=== PATIENT | female | born 1950 | race Caucasian/White ===

== ENCOUNTER 2023-01-16 08:09 | Outpatient (CLI) | payer MEDICARE, OTHER, SELFPAY | END 2023-01-16 08:10 | disposition home or self-care (01) | PROVIDERS: PCP Internal Medicine; Visit Provider Internal Medicine | DX: Z00.00 Encounter for general adult medical examination without abnormal findings (principal); I10 Essential (primary) hypertension; E78.5 Hyperlipidemia, unspecified; M81.0 Age-related osteoporosis without current pathological fracture | CPT/HCPCS: 80048; 80061; 82306 ==

== ENCOUNTER 2023-01-16 08:49 | Outpatient (CLI) | payer MEDICARE, OTHER, SELFPAY ==
--- NOTE | 2023-01-16 08:45 | CRLHL7_ITS ---
For Patients: As a result of the Century Cures Act, medical imaging exams and procedure reports are released immediately into your electronic medical record. You may view this report before your referring provider. If you have questions, please contact your health care provider. BILATERAL SCREENING MAMMOGRAM WITH COMPUTER-AIDED DETECTION TECHNIQUE: CC and MLO views were obtained. These mammographic images have been obtained using full-field digital technique. These mammographic images were interpreted with the benefit of computer-aided detection. COMPARISON FILM: 12/05/21, 12/02/20, 04/07/19. FINDINGS: There are scattered areas of fibroglandular density. IMPRESSION: There is no radiographic evidence for malignancy. ASSESSMENT: BI-RADS Category 1: Negative RECOMMENDATION: Routine screening mammogram in 1 year. A lay language report of this examination will be provided to the patient. ALBERTO SMITH M.D. Diagnostic Radiologist [email or web address]/[email or web address] Transcribed: 01/16/2023, 6:[address]/Dictated by: Alberto Smith MD @ 01/16/2023 11:52:00 AM (Electronically Signed)
== END 2023-01-16 08:50 | disposition home or self-care (01) ==
LOC: MAMMO 08:50
PROVIDERS: PCP Internal Medicine; Visit Provider Internal Medicine
DX: Z12.31 Encounter for screening mammogram for malignant neoplasm of breast (principal)
CPT/HCPCS: 77067

== ENCOUNTER 2023-05-01 13:19 | Outpatient (CLI) | payer MEDICARE, OTHER, SELFPAY ==
--- NOTE | 2023-05-01 13:30 | CRLHL7_ITS ---
For Patients: As a result of the Century Cures Act, medical imaging exams and procedure reports are released immediately into your electronic medical record. You may view this report before your referring provider. If you have questions, please contact your health care provider. DXA BONE MINERAL DENSITY STUDY Reason for exam: Osteoporosis Current height (in): 63.5. Weight (lb): 155.0. Menopause age: 57. Ethnicity: White. 1. Have you had a previous hip or vertebral fracture? No. 2. Have you had any fractures during your adult life which did not result from significant trauma (e.g., auto accident)? No. 3. Did either of your parents have a hip fracture? No. 4. Do you smoke? No. 5. Have you ever taken Glucocorticoids? No. 6. Do you have rheumatoid arthritis? No. 7. Do you have secondary osteoporosis? No. 8. Do you drink 3 or more alcoholic drinks per day? No. 9. Are you being treated for osteoporosis? No. 10. Have you ever taken any of the following medications: Actonel, Evista, Fosamax, Miacalcin, Reclast, Boniva, Forteo, HRT (i.e. estrogen/hormone therapy), Protelos, Prolia, Vitamin D, Calcium, other ??? please specify. ANSWER: Yes, vitamin D. 11. Do you have any of the following medical conditions: Anorexia or bulimia, asthma or emphysema, end stage renal disease, hyperparathyroidism, any seizure disorders, cancer, inflammatory bowel diseases, hysterectomy, other ??? please specify. ANSWER: Yes, hysterectomy. 12. What was your maximum height (inches)? 65. 13. Do you perform weight bearing exercise regularly? Yes. 14. Do you regularly consume dairy products? No. 15. Do you drink caffeinated beverages? Yes. 16. At what age did your period start? 10. 17. Are you premenopausal? No. 18. How many full term pregnancies have you had? 2. 19. Have you ever missed your period for more than 6 months in a row (not including or menopause)? No. TECHNIQUE: Bone mineral density study was performed using the [employer]. FINDINGS: The results of the study expressed as bone mineral density (BMD) are as follows: Lumbar spine L1, L2, L4: BMD: 0.696 g/cm2. T-score: -3.1. Z-score: -0.7. Neck Left: BMD: 0.540 g/cm2. T-score: -2.8. Z-score: -0.7. Right: BMD: 0.531 g/cm2. T-score: -2.9. Z-score: -0.8. Total Left: BMD: 0.626 g/cm2. T-score: -2.6. Z-score: -0.8. Right: BMD: 0.608 g/cm2. T-score: -2.7. Z-score: -1.0. IMPRESSION: Osteoporosis. *Comparison exams done prior to 12/2019 were performed on different unit, [employer]. COMPARISON: Compared with scan of 04/07/2018, the bone mineral density has decreased by 7.2 percent at the spine and increased by 6.3 percent at the hip. Alberto Benitez M.D. Diagnostic Radiologist [email or web address] [email or web address] / be/Dictated by: Alberto Benitez MD @ 05/02/2023 12:26:00 PM (Electronically Signed)
== END 2023-05-01 13:20 | disposition home or self-care (01) ==
LOC: RAD 13:20
PROVIDERS: PCP Internal Medicine; Visit Provider Internal Medicine
DX: M81.0 Age-related osteoporosis without current pathological fracture (principal)
CPT/HCPCS: 77080

== ENCOUNTER 2023-06-11 12:44 | Outpatient (CLI) | payer MEDICARE, OTHER, SELFPAY ==
--- NOTE | 2023-06-11 13:00 | CRLHL7_ITS ---
For Patients: As a result of the Century Cures Act, medical imaging exams and procedure reports are released immediately into your electronic medical record. You may view this report before your referring provider. If you have questions, please contact your health care provider. INDICATION : Cervical disc disease. TECHNIQUE : Cervical spine MRI without contrast. The following sequences were obtained: Sagittal T1, T2 weighted and STIR sequences. Axial T2-weighted and gradient sequences. COMPARISON: COMPARISONNone. FINDINGS: Mild cervical kyphosis. No recent compression fracture or marrow replacing process. Posterior fossa structures are normal. Cervical cord signal is normal. No extraspinal soft tissue abnormalities. Discs/Endplates: Advanced disc height loss, disc desiccation endplate remodeling at C3-4, C4-5 posteriorly and C6-7. Partial bony ankylosis along the C5 interspace. Mild disc degeneration elsewhere. Findings at individual levels as follows: Craniocervical junction: Alignment is maintained. C2-C3: Bilateral low-grade facet arthrosis with minimal left and mild right neural foraminal stenosis. No spinal canal stenosis. C3-C4: 3 millimeters anterolisthesis. Broad-based disc osteophyte complex contacts the ventral cord and when combined with ligamentum flavum thickening results in moderate spinal canal stenosis. Bilateral uncovertebral arthrosis and high-grade bilateral facet arthrosis. Moderately advanced bilateral neural foraminal stenosis with impingement of the exiting C4 nerve roots. C4-C5: 2 millimeters anterolisthesis. Shallow left central disc osteophyte contacts the ventral cord without spinal canal stenosis. Bony fusion along the right facet. No spinal canal or neural foraminal stenosis. C5-C6: Trace anterolisthesis. No spinal canal or neural foraminal stenosis. C6-C7: Broad-based disc osteophyte complex flattens the thecal sac and contributes to mild spinal canal stenosis. Bilateral uncovertebral and facet arthrosis contributes to mild right and moderate left neural foraminal stenosis. C7-T1: Shallow central protrusion flattens the thecal sac. No spinal canal or neural foraminal stenosis. T1-2: Trace anterolisthesis. No spinal canal or neural foraminal stenosis. IMPRESSION: 1. At C3-4, moderate spinal canal stenosis and moderately advanced bilateral foraminal stenosis with impingement of the exiting C4 nerve roots. 2. At C6-7, moderate left neural foraminal stenosis. 3. Low-grade spinal canal/neural foraminal narrowing elsewhere without neural impingement. 4. Mild degenerative cervical kyphosis and widespread cervical disc degeneration as described above. 5. Cervical cord signal is normal. No intradural pathology. Dictated by Nikolay Faulkner MD @ 06/12/2023 1:39:14 PM (Electronically Signed)
== END 2023-06-11 12:45 | disposition home or self-care (01) ==
LOC: MRI 12:49
PROVIDERS: PCP Internal Medicine; Visit Provider Internal Medicine
DX: M50.90 Cervical disc disorder, unspecified, unspecified cervical region (principal); M50.80 Other cervical disc disorders, unspecified cervical region; M48.02 Spinal stenosis, cervical region; M50.30 Other cervical disc degeneration, unspecified cervical region
CPT/HCPCS: 72141

== ENCOUNTER 2023-11-05 14:07 | Outpatient (CLI) | payer MEDICARE, OTHER, SELFPAY ==
--- OUTSIDE RECORDS SUMMARY | 2023-11-05 14:49 | XMS_ITS | Clinical Summary ---
Author Name Unknown [facility] Address [address], [place] [address] Care Team Providers Care Siding Applicator Name Role Phone No Primary/Referring, Panchito Primary Care Provider Unavailable Source Comments You are receiving this document as you are listed as the primary care provider,follow-up provider, or the patient has been referred to you for consultation.This is in compliance with the Medicare andMedicaid EHR Incentive Program,which states Providers who transition their patient to another setting of careor provider of care or refers their patient to another provider of care shouldprovide summary care record for each transition of care or referral. [facility] Allergies Active Allergy Reactions Criticality Noted Date Comments Sulfa Antibiotics Rash 05/17/2016 Medications Medication Sig Dispensed Refills Start Date End Date Status mupirocin (BACTROBAN) 2 % ointment Apply to all cuts BID for 7 days 15 g 0 07/10/2016 Active clobetasol (TEMOVATE) 0.05 % ointment Apply topically two times a week. 11/03/2021 Active lisinopril (ZESTRIL) 5 MG tablet Take 1 Tablet (5 mg) by mouth daily. 11/07/2021 Active Active Problems No known active problems Social History Tobacco Use Types Packs/Day Years Used Date Smoking Tobacco: Never Smokeless Tobacco: Never Alcohol Use Standard Drinks/Week Comments No 0 (1 standard drink = 0.6 oz pur e alcohol) Sex and Gender Information Value Date Recorded Sex Assigned at Not on file Gender Identity Not on file Sexual Orientation Not on file Last Filed Vital Signs Vital Sign Reading Time Taken Comments Blood Pressure 151/107 06/26/2022 8:32 AM WATER METER MECHANIC Pulse 76 06/26/2022 8:32 AM WATER METER MECHANIC Temperature 36.6 ??C (97.8 ??F) 07/10/2016 3:50 PM CS T Respiratory Rate 16 07/10/2016 3:50 PM WATER METER MECHANIC Oxygen Saturation 97% 05/17/2016 7:44 PM WATER METER MECHANIC Inhaled Oxygen Concentration - - Weight 67.1 kg (148 lb) 06/26/2022 8:32 AM WATER METER MECHANIC Height 161.3 cm (5' 3.5) 06/26/2022 8:32 AM WATER METER MECHANIC Body Mass Index 25.81 06/26/2022 8:32 AM WATER METER MECHANIC Plan of Treatment Health Maintenance Due Date Last Done Comments Colon Cancer Screening Plan Due 1950 Hep C Screening (Preventive Services) 1950 Medicare Annual Wellness Visit 1950 Mammogram 1950 Zoster/Shingles (2 of 3) 04/12/2009 02/15/2009 Dexa 2013 COVID-19 Vaccine ( season) 2023 05/08/2022, 10/24/2021, 05/12/2021, Additional history exists Influenza (#1) 2023 05/08/2022, 05/08, 05/19/2021, Additional history exists DTaP/Tdap/Td (2 - Tdap) 02/24/2025 02/25/20 15, 07/24/2007, 02/18/1998 Pneumococcal 65+ Yrs Completed 02/24/2015, 02/19/20 14 HepA Aged Out No longer eligi ble based on patient's age to complete this topic HepB Aged Out No longer eligi ble based on patient's age to complete this topic Hib Aged Out No longer eligi ble based on patient's age to complete this topic IPV (Polio) Aged Out No longer eligi ble based on patient's age to complete this topic MCV4 Aged Out No longer eligi ble based on patient's age to complete this topic Care Teams Siding Applicator Relationship Specialty Start Date End Date No Primary/Referring, Panchito PCP - General 05/17/16
== END 2023-11-05 14:08 | disposition home or self-care (01) ==
LOC: NFLDREF 14:45
PROVIDERS: PCP Internal Medicine; Visit Provider Internal Medicine
DX: Z01.818 Encounter for other preprocedural examination (principal); M79.674 Pain in right toe(s)
CPT/HCPCS: 80048

== ENCOUNTER 2024-01-23 14:32 | Outpatient (CLI) | payer MEDICARE, OTHER, SELFPAY ==
--- OUTSIDE RECORDS SUMMARY | 2024-01-23 14:36 | XMS_ITS | Clinical Summary ---
[facility] Address [address] [address] Care Team Providers Care Traffic Incident Management Manager Name Role Phone No Primary/Referring, Phy Primary Care Provider Unavailable Source Comments You [...] for each transition of care or referral. [facility] Allergies Active Allergy Reactions Criticality Noted Date [...] Comments Blood Pressure 151/107 06/26/2022 8:32 AM DENITRATOR Pulse 76 06/26/2022 8:32 AM DENITRATOR Temperature 36.6 ??C (97.8 ??F) 07/10/2016 3:50 PM CS T Respiratory Rate 16 07/10/2016 3:50 PM DENITRATOR Oxygen Saturation 97% 05/17/2016 7:44 PM DENITRATOR Inhaled Oxygen Concentration - - Weight 67.1 kg (148 lb) 06/26/2022 8:32 AM DENITRATOR Height 161.3 cm (5' 3.5) 06/26/2022 8:32 AM DENITRATOR Body Mass Index 25.81 06/26/2022 8:32 AM DENITRATOR Plan of Treatment Health Maintenance Due Date Last Done Comments Colon Cancer Screening Plan Due 1950 Hep C Screening (Preventive Services) 1950 Medicare Annual Wellness Visit 1950 Mammogram 1950 Zoster/Shingles (2 of 3) 04/12/2009 02/15/2009 Dexa 2013 COVID-19 Vaccine ( season) 2023 05/08/2022, 10/24/2021, 05/12/2021, Additional history exists Influenza (#1) 2024 05/08/2022, 05/08, 05/19/2021, Additional history exists DTaP/Tdap/Td [...] age to complete this topic Care Teams Traffic Incident Management Manager Relationship Specialty Start Date End Date No Primary/Referring, Panchito PCP - General 05/17/16
--- NOTE | 2024-01-23 14:40 | CRLHL7_ITS ---
For Patients: As a result of the Century Cures Act, medical imaging exams and procedure reports are released immediately into your electronic medical record. You may view this report before your referring provider. If you have questions, please contact your health care provider. BILATERAL SCREENING MAMMOGRAM WITH COMPUTER-AIDED DETECTION AND TOMOSYNTHESIS TECHNIQUE: CC and MLO views were obtained. These mammographic images have been obtained using full-field digital technique. These mammographic images were interpreted with the benefit of computer-aided detection. Breast Tomosynthesis was used in this interpretation. COMPARISON FILM: 01/16/23, 12/05/21, 12/02/20. FINDINGS: There are scattered areas of fibroglandular density. IMPRESSION: There is no radiographic evidence for malignancy. ASSESSMENT: BI-RADS Category 1: Negative RECOMMENDATION: Routine screening mammogram in 1 year. A lay language report of this examination will be provided to the patient. Alberto Benitez M.D. Diagnostic Radiologist [email or web address] SP/Dictated by: Alberto Benitez MD @ 01/24/2024 9:03:00 AM (Electronically Signed)
== END 2024-01-23 14:33 | disposition home or self-care (01) ==
LOC: MAMMO 14:33
PROVIDERS: PCP Internal Medicine; Visit Provider Internal Medicine
DX: Z12.31 Encounter for screening mammogram for malignant neoplasm of breast (principal)
CPT/HCPCS: 77063; 77067

== ENCOUNTER 2024-01-30 08:08 | Outpatient (CLI) | payer MEDICARE, OTHER, SELFPAY ==
--- OUTSIDE RECORDS SUMMARY | 2024-01-30 08:28 | XMS_ITS | Clinical Summary ---
[facility] Address [address], [place] [address] Care Team Providers Care Cambering Machine Operator Name Role Phone No Primary/Referring, Phy Primary [...] for each transition of care or referral. [facility] Allergies Active Allergy Reactions Criticality Noted Date [...] Comments Blood Pressure 151/107 06/26/2022 8:32 AM MACHINE FINISHER Pulse 76 06/26/2022 8:32 AM MACHINE FINISHER Temperature 36.6 ??C (97.8 ??F) 07/10/2016 3:50 PM CS T Respiratory Rate 16 07/10/2016 3:50 PM MACHINE FINISHER Oxygen Saturation 97% 05/17/2016 7:44 PM MACHINE FINISHER Inhaled Oxygen Concentration - - Weight 67.1 kg (148 lb) 06/26/2022 8:32 AM MACHINE FINISHER Height 161.3 cm (5' 3.5) 06/26/2022 8:32 AM MACHINE FINISHER Body Mass Index 25.81 06/26/2022 8:32 AM MACHINE FINISHER Plan of Treatment Health Maintenance Due Date [...] age to complete this topic Care Teams Cambering Machine Operator Relationship Specialty Start Date End Date No Primary/Referring, Panchito PCP - General 05/17/16
== END 2024-01-30 08:09 | disposition home or self-care (01) ==
PROVIDERS: PCP Internal Medicine; Visit Provider Internal Medicine
DX: Z00.00 Encounter for general adult medical examination without abnormal findings (principal); I10 Essential (primary) hypertension; E78.5 Hyperlipidemia, unspecified; M81.0 Age-related osteoporosis without current pathological fracture
CPT/HCPCS: 80048; 80061; 82306

== ENCOUNTER 2024-09-15 09:04 | Outpatient (CLI) | payer MEDICARE, OTHER, SELFPAY | END 2024-09-15 09:05 | disposition home or self-care (01) | LOC: NFLDREF 09:04 | PROVIDERS: PCP Internal Medicine; Visit Provider Internal Medicine | DX: Z01.818 Encounter for other preprocedural examination (principal) | CPT/HCPCS: 80048 ==

== ENCOUNTER 2025-02-02 08:01 | Outpatient (CLI) | payer MEDICARE, OTHER, SELFPAY | END 2025-02-02 08:02 | disposition home or self-care (01) | PROVIDERS: PCP Internal Medicine; Visit Provider Internal Medicine | DX: I10 Essential (primary) hypertension (principal); M81.0 Age-related osteoporosis without current pathological fracture; E78.5 Hyperlipidemia, unspecified | CPT/HCPCS: 80048; 80061; 82306 ==

== ENCOUNTER 2025-05-24 12:41 | Outpatient (CLI) | payer MEDICARE, OTHER, SELFPAY ==
--- NOTE | 2025-05-24 13:00 | CRLHL7_ITS ---
For Patients: As a result of the Century Cures Act, medical imaging exams and procedure reports are released immediately into your electronic medical record. You may view this report before your referring provider. If you have questions, please contact your health care provider. INDICATION: BILATERAL SCREENING MAMMOGRAM, ASYMPTOMATIC 74 Y/O FEMALE COMPARISON: 01/23/2024, 01/16/2023, 12/05/2021 TECHNIQUE: Digital mammogram in CC and MLO projections including computer-aided detection (CAD) and tomosynthesis. BREAST COMPOSITION: There are scattered areas of fibroglandular density. FINDINGS: No suspicious findings. ASSESSMENT: BI-RADS 2 Benign RECOMMENDATION: Annual screening mammogram. A lay language report of this examination will be provided to the patient. Dictated by: Alberto Benitez MD @ 05/25/2025 11:20:12 (Electronically Signed)
== END 2025-05-24 12:42 | disposition home or self-care (01) ==
LOC: MAMMO 12:42
PROVIDERS: PCP Internal Medicine; Visit Provider Internal Medicine
DX: Z12.31 Encounter for screening mammogram for malignant neoplasm of breast (principal)
CPT/HCPCS: 77063; 77067